=== PATIENT | female | born 1985 | race Caucasian/White ===

== ENCOUNTER 2018-08-27 10:56 | Emergency (ER) | payer BC, OTHER ==
--- NOTE | 2018-08-27 11:43 | RAD REPORT ---
EXAM DESCRIPTION: Denice Single View08/27/2018 11:24 am CLINICAL HISTORY: Chest pain COMPARISON: none FINDINGS: The lungs appear clear of acute infiltrate. The heart is normal size IMPRESSION: No acute abnormalities displayed
[2018-08-27 11:56] LABS: Absolute Lymphocytes (CBC) 2.5 K/uL (0.7-4.9); Basophils % 0.6 % (0-1.3); Eosinophils % 1.6 % (0-4.4); Hematocrit 43.3 % (36.0-45.0); Lymphocytes % 39.2 % (15.3-44.8); MPV 9.4 fL (7.6-11.3); Monocytes % 8.3 % (3.3-12.3); RBC Red Blood Cell Count 4.85 M/uL (3.86-4.86)
[2018-08-27 12:03] LABS: Protime INR 1.04
[2018-08-27 12:16] LABS: ALT/SGPT 19 U/L (12-78); AST/SGOT 14 U/L (15-37); Alkaline Phosphatase 56 U/L (45-117); BUN Blood Urea Nitrogen 9 mg/dL (7-18); Bicarbonate 26 mmol/L (21-32); Bilirubin Direct 0.1 mg/dL (0-0.2); Bilirubin Total 0.5 mg/dL (0.2-1.0); Glucose Level 92 mg/dL (74-106); Magnesium 2.3 mg/dL (1.8-2.4); NT PRO-BNP 46 pg/mL (<125); Potassium 3.6 mmol/L (3.5-5.1); Sodium Level 140 mmol/L (136-145); Troponin (Emerg Dept Use Only) < 0.02 ng/mL (0.0-0.045)
--- NOTE | 2018-08-27 13:39 | ER ---
Nurse's Notes [facility] Name: Araceli Reyes Age: 33 yrs Sex: Female : 1985 Arrival Date: 08/27/2018 Time: 11:00 Bed 14 Private MD: Ezekiel Moncada T Diagnosis: Palpitations Presentation: 08/27 11:02 Presenting complaint: Patient states: "I think its been going on 2 weeks, when I lay aj1 down at night my heart starts to race, then it feels like it does a real hard a couple beats, and that goes on until I fall asleep, but its gone in the morning. Today its still doing it this morning. Its not constant, but it keep going. And sometimes when I take a deep breath it feels like I can't get all of my air in, and yesterday I had some chest pain". Transition of care: patient was not received from another setting of care. Onset of symptoms was July 2018. Risk Assessment: Do you want to hurt yourself or someone else? Patient reports no desire to harm self or others. Initial Sepsis Screen: Does the patient meet any 2 criteria? No. Patient's initial sepsis screen is negative. Does the patient have a suspected source of infection? No. Patient's initial sepsis screen is negative. Care prior to arrival: None. 11:02 Method Of Arrival: Ambulatory aj1 11:02 Acuity: ANA 3 aj1 Triage Assessment: 11:04 General: Appears in no apparent distress. comfortable, Behavior is calm, cooperative, aj1 appropriate for age. Pain: Denies pain. Neuro: Level of Consciousness is awake, alert, obeys commands, Oriented to person, place, time, situation. Cardiovascular: Patient's skin is warm and dry. Respiratory: Reports shortness of breath that is intermittent Airway is patent Respiratory effort is even, unlabored, Respiratory pattern is regular, symmetrical, Onset: The symptoms/episode began/occurred 2 weeks ago. 11:10 Respiratory: the patient has mild shortness of breath. 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 - Social history:: Smoking status: Patient/guardian denies using tobacco. - Ebola Screening: : Patient denies travel to an Ebola-affected area in the 21 days before illness onset. Screenin:10 Abuse screen: Denies threats or abuse. Nutritional screening: No deficits noted. rb1 Tuberculosis screening: No symptoms or risk factors identified. Fall Risk None identified. Assessment: 11:10 General: Appears distressed, Behavior is anxious, crying, Denies fever. Pain: Denies rb1 pain. Neuro: Level of Consciousness is awake, alert, obeys commands, Oriented to person, place, time, situation. Cardiovascular: Rhythm is w/ PVC's. Respiratory: Reports shortness of breath when she feels her heart fluttering. Airway is patent Respiratory effort is even, unlabored, Respiratory pattern is regular, symmetrical, Breath sounds are clear bilaterally. GI: No signs and/or symptoms were reported involving the gastrointestinal system. : No signs and/or symptoms were reported regarding the genitourinary system. Derm: Skin is pink, warm \\T\\ dry. 12:00 Reassessment: Patient appears in no apparent distress at this time. No changes from rb1 previously documented assessment. at beside. 13:00 Reassessment: Patient appears in no apparent distress at this time. Patient and/or rb1 family updated on plan of care and expected duration. Pain level reassessed. Patient is alert, oriented x 3, equal unlabored respirations, skin warm/dry/pink. Pt. can still feel her heart flutter when she has a PVC. Vital Signs: 11:04 BP 157 / 103; Pulse 84; Resp 18; Temp 98.3; Pulse Ox 100% on R/A; Weight 80.74 kg (R); aj1 Height 5 ft. 6 in. (167.64 cm) (R); Pain 0/10; 12:00 BP 143 / 100; Pulse 76; Resp 17; Temp 98.2(O); Pulse Ox 99% on R/A; Pain 0/10; rb1 13:00 BP 143 / 98; Pulse 77; Resp 17; Temp 98.3(O); Pulse Ox 100% on R/A; Pain 0/10; rb1 13:41 BP 139 / 92; Pulse 75; Resp 17; Temp 98.2(O); Pulse Ox 100% on R/A; Pain 0/10; rb1 11:04 Body Mass Index 28.73 (80.74 kg, 167.64 cm) aj1 ED Course: 11:00 Patient arrived in ED. ag5 11:01 Antonino Melendez MD is Private Physician. ag5 11:01 Ezekiel Moncada MD is Private Physician. ag5 11:04 Triage completed. aj1 11:04 Arm band placed on Patient placed in an exam room. aj1 11:06 Sharda Barber FNP-C is PSYCHIATRICP. kb 11:06 George Morrison MD is Attending Physician. kb 11:10 Patient has correct armband on for positive identification. Placed in gown. Bed in low rb1 position. Call light in reach. Side rails up X 1. burial vault setter on. Pulse ox on. NIBP on. Warm blanket given. 11:28 Inserted saline lock: 22 gauge in right antecubital area, using aseptic technique. rb1 11:29 XRAY Chest (1 view) In Process Unspecified. EDMS 13:32 Leny Maurice, RN is Primary Nurse. rb1 13:56 No provider procedures requiring assistance completed. IV discontinued, intact, em bleeding controlled, No redness/swelling at site. Pressure dressing applied. Administered Medications: No medications were administered Outcome: 13:38 Discharge ordered by MD. kb 13:56 Discharged to home ambulatory, with family. em 13:56 Condition: good 13:56 Discharge instructions given to patient, family, Instructed on discharge instructions, follow up and referral plans. Demonstrated understanding of instructions, follow-up care. 13:57 Patient left the ED. eb Signatures: Dispatcher [employer] [facility] Sharda Barber FNP-C FNP-Ckb Johnson, Angela RN RN aj1 Amaury Chou, DIRECTOR TRAFFIC AND PLANNING DIRECTOR TRAFFIC AND PLANNING em Leny Maurice, RN RN rb1 Jodee Aleman Ajare ag5
--- NOTE | 2018-08-27 13:40 | EDPHYS ---
Physician Documentation [facility] Name: Araceli Reyes Age: 33 yrs Sex: Female : 1985 Arrival Date: 08/27/2018 Time: 11:00 Bed 14 Private MD: Ezekiel Moncada T ED Physician George Morrison HPI: 08/27 11:43 This 33 yrs old Female presents to ER via Ambulatory with complaints of kb Breathing Difficulty, Irregular Pulse. 11:43 The patient presents with a history of irregular heart beat, heart racing. Context: The kb symptoms occur at rest. Onset: The symptoms/episode began/occurred 2 week(s) ago. Duration: The patient or guardian reports multiple episodes. Modifying factors: The symptoms are aggravated by lying down, The symptoms are alleviated by nothing. Associated signs and symptoms: Pertinent positives: SOB. Severity of symptoms: At their worst the symptoms were moderate in the emergency department the symptoms are unchanged. The patient has not experienced similar symptoms in the past. The patient has not recently seen a physician. Pt reports palpitations at night when she lays down in bed for the past 2 weeks. States the palpitations are normally gone by morning, but yesterday lasted for about an hour after waking with right sided chest pain. This morning palpitations haven't gone away and she feels like she cannot take a deep breath. 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 - Social history:: Smoking status: Patient/guardian denies using tobacco. - Ebola Screening: : Patient denies travel to an Ebola-affected area in the 21 days before illness onset. ROS: 11:42 Constitutional: Negative for fever, chills, and weight loss, ENT: Negative for injury, kb pain, and discharge, Neck: Negative for injury, pain, and swelling, Abdomen/GI: Negative for abdominal pain, nausea, vomiting, diarrhea, and constipation, Back: Negative for injury and pain, : Negative for injury, bleeding, discharge, and swelling, MS/Extremity: Negative for injury and deformity, Skin: Negative for injury, rash, and discoloration, Neuro: Negative for headache, weakness, numbness, tingling, and seizure. 11:42 Cardiovascular: Positive for palpitations, Negative for chest pain, edema, orthopnea, paroxysmal nocturnal dyspnea. 11:42 Respiratory: Positive for shortness of breath. Exam: 11:42 Constitutional: This is a well developed, well nourished patient who is awake, alert, kb and in no acute distress. Head/Face: Normocephalic, atraumatic. ENT: Nares patent. No nasal discharge, no septal abnormalities noted. Tympanic membranes are normal and external auditory canals are clear. Oropharynx with no redness, swelling, or masses, exudates, or evidence of obstruction, uvula midline. Mucous membranes moist. Neck: Trachea midline, no thyromegaly or masses palpated, and no cervical lymphadenopathy. Supple, full range of motion without nuchal rigidity, or vertebral point tenderness. No Meningismus. Chest/axilla: Normal chest wall appearance and motion. Nontender with no deformity. No lesions are appreciated. Cardiovascular: Regular rate and rhythm with a normal S1 and S2. No gallops, murmurs, or rubs. Normal PMI, no JVD. No pulse deficits. Respiratory: Lungs have equal breath sounds bilaterally, clear to auscultation and percussion. No rales, rhonchi or wheezes noted. No increased work of breathing, no retractions or nasal flaring. Abdomen/GI: Soft, non-tender, with normal bowel sounds. No distension or tympany. No guarding or rebound. No evidence of tenderness throughout. Skin: Warm, dry with normal turgor. Normal color with no rashes, no lesions, and no evidence of cellulitis. MS/ Extremity: Pulses equal, no cyanosis. Neurovascular intact. Full, normal range of motion. Neuro: Awake and alert, GCS 15, oriented to person, place, time, and situation. Cranial nerves II-XII grossly intact. Motor strength 5/5 in all extremities. Sensory grossly intact. Cerebellar exam normal. Normal gait. Vital Signs: 11:04 BP 157 / 103; Pulse 84; Resp 18; Temp 98.3; Pulse Ox 100% on R/A; Weight 80.74 kg (R); aj1 Height 5 ft. 6 in. (167.64 cm) (R); Pain 0/10; 12:00 BP 143 / 100; Pulse 76; Resp 17; Temp 98.2(O); Pulse Ox 99% on R/A; Pain 0/10; rb1 13:00 BP 143 / 98; Pulse 77; Resp 17; Temp 98.3(O); Pulse Ox 100% on R/A; Pain 0/10; rb1 13:41 BP 139 / 92; Pulse 75; Resp 17; Temp 98.2(O); Pulse Ox 100% on R/A; Pain 0/10; rb1 11:04 Body Mass Index 28.73 (80.74 kg, 167.64 cm) aj1 MDM: 11:06 Patient medically screened. kb 11:42 Data reviewed: vital signs, nurses notes. Data interpreted: Pulse oximetry: on room air kb is 100 %. Interpretation: normal. 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 ED course: Dr Morrison evaluated pt as well. Discussed need for follow up with cardiology for possible holter monitor. Verbal understanding received. Pt will follow up and return for worsening symptoms or other concerns. . 08/27 11:07 Order name: Basic Metabolic Panel 08/27 11:07 Order name: CBC with Diff; Complete Time: 12:05 kb 08/27 11:07 Order name: LFT's; Complete Time: 12:17 kb 08/27 11:07 Order name: Magnesium; Complete Time: 12:17 kb 08/27 11:07 Order name: NT PRO-BNP; Complete Time: 12:17 kb 08/27 11:07 Order name: PT-INR; Complete Time: 12:05 kb 08/27 11:07 Order name: Troponin (emerg Dept Use Only); Complete Time: 12:17 kb 08/27 11:07 Order name: XRAY Chest (1 view); Complete Time: 11:45 kb 08/27 11:07 Order name: EKG; Complete Time: 11:08 kb 08/27 11:07 Order name: Cardiac monitoring; Complete Time: 11:10 kb 08/27 11:07 Order name: Basic Metabolic Panel; Complete Time: 12:17 EDCA 08/27 11:13 Order name: D-Dimer; Complete Time: 12:28 kb 08/27 13:45 Order name: Urine Dipstick--Ancillary (enter results) 08/27 13:45 Order name: Urine --Ancillary (enter results) 08/27 11:07 Order name: EKG - Nurse/Tech; Complete Time: 11:43 kb 08/27 11:07 Order name: IV Saline Lock; Complete Time: 11:43 kb 08/27 11:07 Order name: Labs collected and sent; Complete Time: 11:43 kb 08/27 11:07 Order name: O2 Per Protocol; Complete Time: 11:10 kb 08/27 11:07 Order name: O2 Sat Monitoring; Complete Time: 11:10 kb Administered Medications: No medications were administered Disposition: 16:52 Co-signature as Attending Physician, George Morrison MD. rn Disposition: 08/27/18 13:38 Discharged to Home. Impression: Palpitations. - Condition is Stable. - Discharge Instructions: Palpitations, [id number]. - Medication Reconciliation Form, Thank You Letter, Antibiotic Education, Prescription Opioid Use form. - Follow up: Emergency Department; When: As needed; Reason: Worsening of condition. Follow up: Private Physician; When: 2 - 3 days; Reason: Recheck today's complaints, Continuance of care, Re-evaluation by your physician. Signatures: Dispatcher [employer] [facility] Sharda Barber, MAXIMILIANO-Francois CUENCAP-Kateryna Bone RN RN aj1 George Morrison MD MD rn Botello, Elizabeth eb Corrections: (The following items were deleted from the chart) 13:57 13:38 08/27/2018 13:38 Discharged to Home. Impression: Palpitations. Condition is eb Stable. Forms are Medication Reconciliation Form, Thank You Letter, Antibiotic Education, Prescription Opioid Use. Follow up: Emergency Department; When: As needed; Reason: Worsening of condition. Follow up: Private Physician; When: 2 - 3 days; Reason: Recheck today's complaints, Continuance of care, Re-evaluation by your physician. kb
[2018-08-27 14:30] VITALS: O2SAT 100
[2018-08-27 14:31] VITALS: BP 139/92; TEMP 98.2
[2018-08-27 17:25] LABS: Urine Blood TRACE (NEG); Urine Glucose NEGATIVE (NEG); Urine Protein NEGATIVE (NEG); Urine pH 6.5 (5.0-7.0)
--- NOTE | 2018-08-27 18:41 | EKG ---
Test Date: 2018-08-27 Test Time: 11:18:19 Glass Laminating Operator: MEASUREMENT RESULTS: Intervals: Rate: 86 VA: 162 QRSD: 80 QT: 384 QTc: 459 [place]: P: 65 VA: 162 QRS: 10 T: 47 INTERPRETIVE STATEMENTS: Sinus rhythm with frequent premature ventricular complexes Abnormal ECG No previous ECG available for comparison Electronically Signed On 08-27-18 18:41:10 CDT by Javid Pat
== END 2018-08-27 13:57 | disposition home or self-care (01) ==
LOC: ER 10:56
DX: R00.2 Palpitations (principal)
CPT/HCPCS: 36415; 71045; 80048; 80076; 81003; 81025; 83735; 83880; 84484; 85025; 85379; 85610; 93005; 99284